=== PATIENT | male | born 1970 | race African-American/Black ===

== ENCOUNTER 2018-06-10 11:41 | Emergency (ER) | payer MEDICAID ==
[~2018-06-10] VITALS: Ht 182.9 cm; Wt 95.3 kg
[2018-06-10 12:04] VITALS: BP 124/81
--- NOTE | 2018-06-10 12:05 | Emergency Room Report ---
History of Present Illness General Chief Complaint: Behavioral Complaint Source: Patient Present Illness HPI 48-year-old male patient presents ER requesting psychiatric evaluation. Patient reports that he has a history of multiple personality disorder. Denies thoughts of hurting himself or others at this time. Reports that psychiatric onset of symptoms began to have using meth, states that he has not used meth for 2 years. Denies other acute symptoms. Denies fever, chest pain, shortness of breath, abdominal pain. Allergies: Coded Allergies: No Known Allergies (Unverified , 06/10/18) Patient History Past Medical History: see triage record Reviewed Nursing Documentation: PMH: Agreed; PSxH: Agreed Nursing Documentation-PMH Past Medical History: No History, Except For Review of Systems All Other Systems: negative except mentioned in HPI Physical Exam Vital Signs Date Time Temp Pulse Resp B/P (MAP) Pulse Ox O2 Delivery O2 Flow Rate FiO2 06/10/18 11:47 98.2 95 15 124/81 96 Room Air 98.2 Sp02 EP Interpretation: reviewed, normal General Appearance: well appearing, no apparent distress, alert, GCS 15, non- toxic Head: normocephalic, atraumatic Eyes: bilateral eye normal inspection, bilateral eye PERRL ENT: hearing grossly normal, normal pharynx, no angioedema, normal voice, uvula midline, moist mucus membranes Neck: full range of motion Respiratory: lungs clear, normal breath sounds, no rhonchi, no respiratory distress, no accessory muscle use, no wheezing, speaking full sentences Cardiovascular #1: regular rate, rhythm, no edema Gastrointestinal: non tender, soft, no mass, non-distended, no guarding, no rebound Musculoskeletal: back normal, digits/nails normal, gait/station normal, normal range of motion, non-tender Neurologic: alert, oriented x3, responsive, motor strength/tone normal, sensory intact Psychiatric: mood/affect normal Skin: no rash Medical Decision Making PA Attestation Dr. Bray is my supervising Physician whom patient management has been discussed with. Diagnostic Impression: Primary Impression: Behavioral disorder ER Course Pt. presents to the ED requesting psychiatric evaluation. Multiple differentials considered. Vital signs: are WNL, pt. is afebrile ER COURSE: patient requesting psychiatric evaluation. Informed patient we do not have psychiatric services at this hospital. referred patient to mental health urgent care. provided with contact information for mental health urgent care. Patient states he will follow-up at urgent care. Patient okay for discharge at this time. No acute complaints. Physical exam benign. Do not believe patient is danger to himself or others at this time. denies suicidal or homicidal ideation. DISCHARGE: At this time pt is stable for d/c to home. Patient is resting comfortably, in no acute distress, nontoxic appearing, talking without difficulty. Patient to take medications as instructed Will provide with patient care instructions and any necessary prescriptions. Care plan and follow-up instructions provided. Patient instructed to follow-up with primary care provider in 3 - 5 days. Patient questions asked and answered. Patient reports understanding and agreement to treatment plan. ER precautions given. Patient instructed to return to ER immediately for any new or worsening of symptoms including but not limited to increasing SOB, persistent fever, chest pain, intractable vomiting. - Please note that this Emergency Department Report was dictated using [employer] account [employer] technology software, occasionally this can lead to erroneous entry secondary to interpretation by the dictation equipment. Last Vital Signs Date Time Temp Pulse Resp B/P (MAP) Pulse Ox O2 Delivery O2 Flow Rate FiO2 06/10/18 11:47 98.2 95 15 124/81 96 Room Air 98.2 Disposition: HOME, SELF-CARE Condition: Stable Additional Instructions: follow-up with mental health urgent care. Follow-up with mental health professional. Followup with primary care provider in 3 -5 days. Take medications as directed. Patient questions asked and answered. ER precautions given, patient instructed to return to ER immediately for any new or worsening of symptoms. Wes Saenz Jun 10, 2018 12:05
[2018-06-10 12:07] VITALS: BP 124/81
== END 2018-06-10 12:42 | disposition home or self-care (01) ==
LOC: EMR 12:36
DX: F91.9 Conduct disorder, unspecified (principal)
CPT/HCPCS: 99283